=== PATIENT | female | born 1965 | race Caucasian/White ===

== ENCOUNTER 2019-09-25 06:34 | Day surgery (SDC) | payer OTHER ==
[2019-09-25] VITALS (12 sets, daily range): BP systolic 107–132; BP diastolic 59–81; PULSE 61–75; TEMP 98
[~2019-09-25] VITALS: Ht 165.1 cm; Wt 133.2 kg
[~2019-09-25 06:34] MED LIST: B-121000 MCG PO; BENADRYL25 M2 PO; FLEXERIL 1010 MG/TAB PO; LASIX 20MG TABL20 MG PO; MELAT3MGTAB PO; MICRO-K EXTENCA8 MEQ PO; NEURONTIN600 MG/TAB PO; PERCOCET 325 MG1 TA2 PO; PRENATAL1 TA7 PO; PROAIR HFA0.09 MG/AC IH; TOPAMAX 25MG25 M1 PO; ZOFRAN8 MG PO; ZYRTEC 10MG10 MG PO
[2019-09-25 07:28] LABS: CALCIUM 9.2 mg/dL (8.4-10.2); CREATININE, serum 0.69 (0.52-1.25); POTASSIUM 4.2 mmol/L (3.4-5.0)
[2019-09-25 07:30] LABS: HEMATOCRIT 40.6 % (37.0-47.0); HEMOGLOBIN 12.6 g/dl (12.5-16.0); MEAN CELL VOLUME 85 fl (80.0-100.0); MEAN CORPUSCULAR HEMOGLOBIN 26 pg (27.0-31.0); MEAN CORPUSCULAR HGB CONC 31 g/dl (33.0-37.0); MEAN PLATELET VOLUME 10.1 fl (7.4-10.4); PLATELET COUNT 387 K/mm3 (130-400); RED BLOOD COUNT 4.78 M/mm3 (4.10-5.30); REDCELL DISTRIBUTION WIDTH-CV 14.4 % (11.5-14.5)
[2019-09-25 07:42] LABS: INR 0.9 (0.8-3.0); PROTHROMBIN TIME 10.6 SECONDS (9.7-12.8)
[2019-09-25 07:45] LABS: PARTIAL THROMBOPLASTIN TIME 32.1 SECONDS (26.0-37.0)
[2019-09-25] MEDS ORDERED: TYLENOL 325MG325 MG PO (08:51)
[2019-09-25] MEDS ORDERED: ASPIRIN 81M81 MG/TA2 PO (08:52)
[2019-09-25] MEDS ORDERED: COLACE 100100 MG/CAP PO (08:52)
--- NOTE | 2019-09-25 09:20 | NUR ---
SEE MERGE DOCUMENTATION FOR MEDICATION ADMINISTRATION TIMES AND INTRA/POST PROCEDURE SEDATION ASSESSMENTS. PT WITH NUMEROUS ALLERGIES, INCLUDING FENTANYL AND TORDOL. PT REPORTS TAKING MORPHINE PREVIOUSLY WITHOUT ANY ISSUE. THIS INFORMATION RELAYED TO PHYSICIAN. PLAN FOR RIGHT RADIAL ACCESS; BARBEAU TEST POSITIVE.
[2019-09-25] MEDS ORDERED: LIPITOR 40MG TA40 MG PO (09:55)
--- NOTE | 2019-09-25 10:00 | NUR ---
pT BACK FROM [facility] [employer]PER[facility], WITH PT. BEDSIDE REPORT FROM CARLO CARRINGTON. PT IS AWAKE AND ALERT, TR BAND TO RT WRIST, 13 CC AIR IN BAND, PUNCTURE SITE VISIBLE WITH NO BLEEDING OR ADJACENT HEMATOMA. PT DOES HAVE TENDERNESS TO RT FOREARM, HOWEVER IT IS SOFT WITHOUT HEMATOMA PT ALSO C/O FEELING LIKE A BAND AROUND RT UPPER ARM ABOVE ELBOW. NO HEMATOMA PALPATED IN THIS AREA, CMS SEEMS TO BE INTACT DISTAL. RT RADIAL PULSE PALPABLE, CAP REFILL TIME <3 SECONDS, NO HEMATOMA.. WILL CONTINUE FREQUENT MONITORING. LEFT FOREARM ALSO TENDER TO PALP DUE TO IV, NO SWELLING OR OTHER SX NOTED THERE. ICE CHIPS GIVEN, PT REPORTED NAUSEA, ZOFRAN 4 MG IV WAS GIVEN PER VERBAL ORDER FROM CRUZITO ANTHONY. THIS SEEMED TO HELP.
--- NOTE | 2019-09-25 13:52 | NUR ---
Discharge instructions given to pt.pt verbalizes understanding.INT removed,catheter tip intact.pt escorted out via wheelchair by this nurse.
== END 2019-09-25 14:53 | disposition home or self-care (01) ==
LOC: COL.CAR 06:34
PROVIDERS: Internal Medicine Cardiovascular Disease
DX: I25.10 Atherosclerotic heart disease of native coronary artery without angina pectoris (principal); R94.39 Abnormal result of other cardiovascular function study; Z79.899 Other long term (current) drug therapy; Z79.82 Long term (current) use of aspirin; Z87.891 Personal history of nicotine dependence; Z88.8 Allergy status to other drugs, medicaments and biological substances; Z88.6 Allergy status to analgesic agent; Z88.1 Allergy status to other antibiotic agents; Z82.49 Family history of ischemic heart disease and other diseases of the circulatory system; Z82.3 Family history of stroke; Z80.9 Family history of malignant neoplasm, unspecified
CPT/HCPCS: J1644; J2250; J2270; J2405; Q9967